=== PATIENT | male | born 1940 | race Hispanic/Latino ===

== ENCOUNTER → 2018-09-25 | Outpatient (CLI) | payer OTHER, MEDICARE ==
[~2018-09-25] MED LIST: AMLO10TA7 PO; CARV25TA PO; FURO20TA4 PO; INSLAN SQ; PIOG30TA70 PO; SIMV40TA59 PO
== END | disposition home or self-care (01) ==
LOC: OIH 12:14
PROVIDERS: ATTEND Family Medicine
DX: I10 Essential (primary) hypertension (principal)
CPT/HCPCS: 71046

== ENCOUNTER → 2020-06-23 | Outpatient (CLI) | payer OTHER, MEDICARE ==
[~2020-06-23] MED LIST changes: +AMLO-258 PO; -AMLO10TA7 PO
== END | disposition home or self-care (01) ==
LOC: RAH 15:05
PROVIDERS: ATTEND Family Medicine
DX: N43.3 Hydrocele, unspecified (principal); K40.90 Unilateral inguinal hernia, without obstruction or gangrene, not specified as recurrent
CPT/HCPCS: 76870